=== PATIENT | male | born 1995 | race Caucasian/White ===

== ENCOUNTER 2019-01-25 06:40 | Day surgery (SDC) | payer OTHER ==
[~2019-01-25] VITALS: Ht 172.7 cm; Wt 71.3 kg
[2019-01-25] VITALS (24 sets, daily range): BP systolic 111–140; BP diastolic 45–74; PULSE 67–88; RESP 12–47; Ht 172.7 cm; Wt 71.3 kg
[2019-01-25] MEDS ORDERED: PROPOFOL 20 ML ONE (08:12)
[2019-01-25] MEDS ORDERED: CEFAZOLIN 1 GM INJ ONE (08:12)
[2019-01-25] MEDS ORDERED: GLYCOPYRROLATE 0.4 MG INJ ONE (08:12)
[2019-01-25] MEDS ORDERED: NEOSTIGMINE 3 MG/3 ML SYRINGE ONE (08:12)
[2019-01-25] MEDS ORDERED: ROCURONIUM 50 MG INJ ONE (08:12)
[2019-01-25] MEDS ORDERED: MIDAZOLAM 1 MG/ML 2 ML INJ ONE (08:13)
[2019-01-25] MEDS ORDERED: FENTAnyl 50 MCG/ML VIAL ONE (08:13)
[2019-01-25] MEDS ORDERED: DEXAMETHASONE 4 MG/ML 5 ML INJ ONE (08:14)
[2019-01-25] MEDS ORDERED: ONDANSETRON 4 MG INJ ONE (08:14)
[2019-01-25] MEDS ORDERED: ROPIVACAINE 0.5 % 30 ML VIAL ONE (08:21)
[2019-01-25] MEDS ORDERED: LIDOCAINE 1%/EPI (1:100,000) (MDV) 20 ML ONE ×3 (08:38→10:29)
[2019-01-25] MEDS ORDERED: DESFLURANE 15 MIN ONE (08:56)
[2019-01-25] MEDS ORDERED: POLYMYXIN/BACITRACIN 1L IRRIG ONE (09:22)
--- NOTE | 2019-01-25 10:50 | HPN ---
Date/Time of Note Date/Time of Note DATE: 01/25/19 TIME: 10:50 Interval H&P Admission Note Pt. seen H&P reviewed: No system changes No changes, new handwritten H&P in chart. Hematology clearance in chart and new labs ordered. EDWIN BURGESS MD Jan 25, 2019 10:50
--- NOTE | 2019-01-25 10:52 | SIPON ---
Date/Time of Note Date/Time of Note DATE: 01/25/19 TIME: 10:50 Operative Report Preoperative Diagnosis Right ACL Tear, Lateral Mensical tear Postoperative Diagnosis Right ACL tear, lateral mensical logitudinal/radial tear Operation/Procedure Performed Right ACL reconstruction with TA allograft, lateral mensical repair. Surgeon see signature line assistant fitness manager Thelma Palma - PAC Anesthesia: general Estimated blood loss: minimal Transfusion Required none Specimen none Grafts/Implants none Complications none EDWIN BURGESS MD Jan 25, 2019 10:52
--- NOTE | 2019-01-25 11:12 | PAC ---
Date/Time of Note Date/Time of Note DATE: 01/25/19 TIME: 11:12 Post-Anesthesia Notes Post-Anesthesia Note Last documented vital signs Vital Signs Date Temp Pulse Resp B/P (MAP) Pulse Ox O2 O2 Flow FiO2 Time Delivery Rate 01/25/19 98.3 10:59 01/25/19 67 18 128/55 99 Room Air 07:09 (79) Activity: WNL Respiratory function: WNL Cardiovascular function: WNL Mental status: Baseline Pain reasonably controlled: Yes Hydration appropriate: Yes Nausea/Vomiting absent: Yes Boris Jerry M.D. Jan 25, 2019 11:12
[2019-01-25] MEDS ORDERED: HYDROmorphONE 1 MG/5 ML IV SYRINGE IV ONE (11:22)
[2019-01-25] MEDS ORDERED: ONDANSETRON 4 MG INJ IV PRN (11:30)
[2019-01-25] MEDS ORDERED: DIPHENHYDRAMINE 50 MG INJ IV PRN (11:30)
[2019-01-25] MEDS ORDERED: IPRATROPIUM (NEB) 0.5 MG/2.5 ML AMP HHN PRN (11:30)
[2019-01-25] MEDS ORDERED: hydrALAzine 20 MG INJ IV PRN (11:30)
[2019-01-25] MEDS ORDERED: OXYCODONE/ACETAMINOPHEN (5/325) TAB PO PRN ×2 (11:30)
[2019-01-25] MEDS ORDERED: HYDROmorphONE 1 MG/5 ML IV SYRINGE IV PRN ×3 (11:30)
[2019-01-25] MEDS ORDERED: FENTAnyl 50 MCG/ML VIAL IV PRN ×3 (11:30)
[2019-01-25] MEDS ORDERED: ALBUTEROL 0.083% (NEB) 2.5 MG/3 ML AMP HHN PRN (11:30)
[2019-01-25] MEDS ORDERED: TRIMETHOBENZAMIDE 100 MG/ML VIAL IM PRN (11:30)
[2019-01-25] MEDS ORDERED: MIDAZOLAM 1 MG/ML 2 ML INJ IV PRN (11:30)
[2019-01-25] MEDS ORDERED: LABETALOL HCL 20MG INJ IV PRN (11:30)
[2019-01-25] MEDS ORDERED: EPHEDrine SULFATE 50 MG/5 ML SYG IV PRN (11:30)
[2019-01-25] MEDS ORDERED: MEPERIDINE 25 MG INJ IV PRN (11:30)
--- NOTE | 2019-02-18 11:11 | OPR ---
DATE OF OPERATION: 01/25/2019 PREOPERATIVE DIAGNOSES: 1. Right anterior cruciate ligament tear. 2. Lateral meniscal tear. POSTOPERATIVE DIAGNOSES: 1. Right anterior cruciate ligament tear. 2. Lateral meniscal tear. OPERATION PERFORMED: 1. Arthroscopy of the right knee. 2. Arthroscopic anterior cruciate ligament reconstruction with tibialis anterior allograft. 3. Lateral meniscal repair. ANESTHESIOLOGIST: Dr. Jerry. ANESTHESIA: General with adductor canal block. GRANITE COUNTERTOP INSTALLER: Jordan Renee BLOOD LOSS: Blood loss was minimal. ANTIBIOTICS: Ancef. TOURNIQUET TIME: 250 at 34 minutes. INDICATION: Mina is a patient who sustained a tear to his anterior cruciate ligament and lateral me niscus several months ago. He had failed conservative treatment. He originally presented with a sig nificant contracture and through the course of physical therapy he was able to resolve the contractur e, but was still having some mechanical symptoms and symptoms of instability. After risks and benefi ts of surgery explained to the patient including pain, bleeding, infection, scarring, damage to neuro vascular structures, failure of surgery to work, blood clots, upper extremities and lower extremities , pulmonary embolism, risks of anesthesia and were explained to the patient. He elected to pro ceed. Unique risks to this surgery of a meniscal repair involved. 1. The decision to perform the meniscal repair versus meniscectomy and the subsequent possible failu re of the meniscal repair in the future, given the patient's use an acute nature of the tear and the fact we are performing concomitant ACL reconstruction if it at all possible to perform meniscal repai r it would be our desire to do so despite the risks of failure and the need for further meniscectomy in the future. The patient understands that. ARTHROSCOPIC FINDINGS: Within the patellofemoral space, there was no injury within the medial and la teral gutter, there was no injury within the medial compartment. There was no injury in the central compartment. There was absence of the anterior cruciate ligament, consistent with a previous tear in the lateral compartment. There was a significant tear of the lateral meniscus, which was a radial t ear in the midportion of the body that extended into the longitudinal leaflets, they went to the horn and then around laterally as well. The overall volume of this tear was approximately 80% of the lat eral meniscus. PROCEDURE IN DETAIL: The patient was marked and identified in preoperative holding, brought to the o perating room and placed supine on the operating table and placed under general anesthesia. His bony prominences were well padded. Sequential compressive device placed on contralateral lateral lower e xtremity. Antibiotics were dosed given. Examination under anesthesia was performed. The patient burgess d full range of motion with a significant pivot shift and clicking of the lateral compartment. He wa s prepped and draped in the usual sterile fashion. A tourniquet was placed high up on the thigh. Ti me out was performed. Arthroscopy was initiated with standard portals as well as the diagnostic arth roscopy. First area of work was inspected lateral meniscus which was significantly torn. If we were to perform a meniscectomy in this area, this would have resulted in approximately 90% meniscal loss, which the patient of this age, I found to be an acceptable option given the nature of the tear and t he fact that we performed a concomitant ACL reconstruction that the chances of meniscal healing would be good, even if it partially healed. This will be beneficial for the patient in the future. There fore, the decision was made to perform a meniscal repair. The edges of the leaflets were debrided of any necrotic tissue. There was a very small amount and then using a rasp, the surfaces of the menis cus were abraded to promote angiogenesis. A spinal needle was also used to perform a trephination up on the capsule also to promote angiogenesis. At this point, we are faced with a problem given the ap ex of the tear was essentially in the center of the right in front of the popliteus tendon, which we obviously did not want to ensnare without repair so using a [employer] mini FirstPass device, t jemal leaflets of the meniscus were repaired to each other. Again, this was a radial split with 2 longi tudinal leaflets. It almost had a T-shaped pattern. We brought that T together using mattress sutur es. These were nonabsorbable sutures using the FirstPass device. This approximated the meniscus rin g very nicely, but obviously the ring was still unstable; therefore, just lateral and medial to the p opliteus tendon [employer] FirstPass meniscal repair devices were placed, just approximating th e meniscal tear to the capsule. Several of these were placed, both medially and laterally for strong fixation. At the conclusion of this, we used a probe to check for any splits and this was a very so lid repair not only was the radial portion approximated, but the longitudinal portions were approxima pascual nicely. The knee was taken through a range of motion and this was found to be quite stable and w e checked the periphery of the popliteus and there was no penetration of the popliteus tendon. Atten tion was now turned to the ACL itself and the ACL was essentially gone and totally absent from the wa ll and this was further debrided and a notchplasty was performed. The patient had A-shaped notch and this was converted into a U-shaped performing a notchplasty and the tibial footprint was also debrid ed of some remnant ACL. At this time, preparations were made for a tunnel and an incision was made o sarmad the medial crest of the tibia down to the periosteum. The periosteum was formally dissected and a flap was made here at the knee hold it in 90 degrees of flexion, a tibial guide was 55 degree angle was used to enter suit our tibial tunnel appropriately into the knee and then attention was turned t o the femur, where the knee was brought upon the table and placed him in a state of hyperflexion. At this point, the anteromedial portal was established for spinal needle localization to the femoral tu nnel. This was subsequently drilled with an over the top guide. Upon conclusion of this drilling, a suture was passed through both tunnels. The graft was concomitantly prepared on the back table and affixed to a [employer] button device. This device was brought to the tibia into the joint and subsequently across the femur and flipped and using the tensioning mechanism of the device itself. The graft was elevated through the tibia into the joint and then into the femoral socket very nicely. At this point, all instrumentation was removed and holding extreme tension upon the graft on the ti bial side. The knee was taken through greater than 20 cycles of flexion, extension off the table and then brought upon the table with the posterior bump and a posterior drawer force applied. A [employer] extra shaped device, screw and sheath system was used to perform tibial fixation upon conclusion of t his all tensioning devices and instrumentation was removed. The knee was examined, had full range of motion and a very stable Randy. Pivot shift had resolved. At this point, the tourniquet was defl ated and hemostasis was confirmed. Arthroscope was placed back into the joint for inspection and the ACL looked very nice, very nicely tension and no impingement on flexion or extension and then we xena t and inspected our lateral meniscus again and this had not in any way changed or removed since we la st repaired it. The knee was then copiously irrigated with additional several liters of fluid and th en instrumentation was removed. Closure was performed upon all portals with 3-0 Monocryl, suture mehta bs of the ultra button were cut lateral on the thigh. This was also closed with a Monocryl and the f ormal tibial incision was closed with Monocryl for the periosteal layer and Monocryl for the dermal l denys and a subcuticular closure as well. Steri-Strips were applied to all. Injection of local anest hetic was performed. The patient was placed in a DVT prevention stocking as well as a hinged knee br beatriz, which will be locked in extension. The patient was extubated in good condition. Dictated By: EDWIN BURGESS MD AD/NTS Conf#: [id number] DID#: [id number] CC: EDWIN BURGESS MD;*EndCC*
== END 2019-01-25 12:56 | disposition home or self-care (01) ==
LOC: SDS 06:40
PROVIDERS: ATTEND Orthopaedic Surgery
DX: S83.511D Sprain of anterior cruciate ligament of right knee, subsequent encounter (principal); S83.281D Other tear of lateral meniscus, current injury, right knee, subsequent encounter; X58.XXXD Exposure to other specified factors, subsequent encounter
CPT/HCPCS: 29881; 29888; 80053; 85025; 85610; 85730; C1713; C1762; J0690; J1100; J1170; J2250; J2405; J2710; J2795; J3010; Z7512; Z7610